=== PATIENT | male | born 1965 | race Caucasian/White ===

== ENCOUNTER → 2020-02-16 | Emergency (ER) | payer OTHER ==
[~2020-02-16] VITALS: Ht 172.7 cm; Wt 111.1 kg
[~2020-02-16] MED LIST: ASPIRIN 81 MG CHEW (CHILDREN'S ASA) PO ONE; HOLD METFORMIN - RECEIVED CONTRAST 20 ML VIAL IV SCH; IOHEXOL 350 MG/ML 100 ML (OMNIPAQUE 350) VIAL IV ONE; NITR0.4T39 SL; NS 100 ML (IVPB) BAG IV ONE
[2020-02-16 17:45] VITALS: BP 128/91
--- NOTE | 2020-02-16 17:50 | ED Chest Pain ---
General Stated Complaint: SOA/SWEATS/NEG COVID TEST TODAY Source: patient Exam Limitations: no limitations History of Present Illness Date Seen by Provider: Feb 16, 2020 Time Seen by Provider: 17:48 Initial Comments To ER by private vehicle from [facility] urgent care with reports of chest pain and shortness of breath. This episode occurred today while he was taking out the trash. He became diaphoretic with it. Pain resolved after about 5 to 10 minutes with rest. He also reports that he has had a few similar episodes over the past 2 to 3 weeks. At the onset of this he dislocated his left knee and states that he cracked his proximal tibia and now has some persistent bruising around the left knee. He is concerned he may have a blood clot. He is symptom- free at this time. Timing/Duration: changing over time, intermittent Severity/Quality: moderate Location: central Radiation: no radiation Activities at Onset: none ASA po REPORT ANALYST: No NTG SL REPORT ANALYST: No Allergies and Home Medications Allergies Coded Allergies: codeine (Unverified Allergy, Mild, 02/11/09) doxycycline (Verified Allergy, Unknown, 02/16/20) Home Medications Nitroglycerin 0.4 Mg Tab.subl, 0.4 MG SL UD PRN for CHEST PAIN Prescribed by: HÉCTOR MIR on 02/16/201957 Patient Home Medication List Home Medication List Reviewed: Yes Review of Systems Review of Systems Constitutional: see HPI, diaphoresis EENTM: No Symptoms Reported Respiratory: See HPI; Denies Cough, Denies Orthopnea, Denies Shortness of Air Cardiovascular: See HPI, Chest Pain Gastrointestinal: No Symptoms Reported Genitourinary: No Symptoms Reported Musculoskeletal: no symptoms reported Skin: no symptoms reported Psychiatric/Neurological: No Symptoms Reported Endocrine: No Symptoms Reported Past Herupxp-Moazla-Enrlek Hx Patient Social History Recent Foreign Travel: No Contact w/Someone Who Travel: No Past Medical History Reproductive Disorders: No Physical Exam Vital Signs Vital Signs - First Documented 02/16/20 17:45 Temp 36.6 Pulse 69 Resp 16 B/P (MAP) 128/91 (103) Pulse Ox 97 O2 Delivery Room Air Capillary Refill : Height, Weight, BMI Height: '" Weight: lbs. oz. kg; BMI Method: General Appearance: No Apparent Distress, WD/WN, Obese Neck: Full Range of Motion, Normal Inspection Respiratory: Lungs Clear, Normal Breath Sounds, No Accessory Muscle Use, No Respiratory Distress Cardiovascular: Regular Rate, Rhythm, Normal Peripheral Pulses Gastrointestinal: Non Tender, Soft Extremity: Normal Capillary Refill, Normal Inspection Neurologic/Psychiatric: Alert, Oriented x3 Skin: Normal Color, Warm/Dry Progress/Results/Core Measures Results/Orders Lab Results Laboratory Tests Test 02/16/20 17:53 Range/Units White Blood Count 6.5 4.3-11.0 10^3/uL Red Blood Count 4.39 4.30-5.52 10^6/uL Hemoglobin 14.7 13.3-17.7 g/dL Hematocrit 42 40-54 % Mean Corpuscular Volume 96 80-99 fL Mean Corpuscular Hemoglobin 34 25-34 pg Mean Corpuscular Hemoglobin Concent 35 32-36 g/dL Red Cell Distribution Width 13.2 10.0-14.5 % Platelet Count 126 L 130-400 10^3/uL Mean Platelet Volume 9.7 9.0-12.2 fL Immature Granulocyte % (Auto) 1 % Neutrophils (%) (Auto) 51 42-75 % Lymphocytes (%) (Auto) 33 12-44 % Monocytes (%) (Auto) 11 0-12 % Eosinophils (%) (Auto) 4 0-10 % Basophils (%) (Auto) 1 0-10 % Neutrophils # (Auto) 3.3 1.8-7.8 10^3/uL Lymphocytes # (Auto) 2.1 1.0-4.0 10^3/uL Monocytes # (Auto) 0.7 0.0-1.0 10^3/uL Eosinophils # (Auto) 0.2 0.0-0.3 10^3/uL Basophils # (Auto) 0.0 0.0-0.1 10^3/uL Immature Granulocyte # (Auto) 0.0 0.0-0.1 10^3/uL Prothrombin Time 13.2 12.2-14.7 SEC INR Comment 1.0 0.8-1.4 Activated Partial Thromboplast Time 26 24-35 SEC Sodium Level 136 135-145 MMOL/L Potassium Level 3.8 3.6-5.0 MMOL/L Chloride Level 103 98-107 MMOL/L Carbon Dioxide Level 20 L 21-32 MMOL/L Anion Gap 13 5-14 MMOL/L Blood Urea Nitrogen 19 H 7-18 MG/DL Creatinine 1.09 0.60-1.30 MG/DL Estimat Glomerular Filtration Rate > 60 BUN/Creatinine Ratio 17 Glucose Level 96 70-105 MG/DL Calcium Level 8.5 8.5-10.1 MG/DL Corrected Calcium 8.3 L 8.5-10.1 MG/DL Magnesium Level 2.4 1.6-2.4 MG/DL Total Bilirubin 0.6 0.1-1.0 MG/DL Aspartate Amino Transf (AST/SGOT) 69 H 5-34 U/L Alanine Aminotransferase (ALT/SGPT) 113 H 0-55 U/L Alkaline Phosphatase 82 40-136 U/L Myoglobin 129.5 H 10.0-92.0 NG/ML Troponin I < 0.028 <0.028 NG/ML B-Type Natriuretic Peptide 14.2 <100.0 PG/ML Total Protein 7.3 6.4-8.2 GM/DL Albumin 4.2 3.2-4.5 GM/DL My Orders Orders - HÉCTOR MIR TELEGRAPH MECHANIC Cbc With Automated Diff (02/16/20 17:46) Magnesium (02/16/20 17:46) Chest 1 View, Ap/Pa Only (02/16/20 17:46) Ekg Tracing (02/16/20 17:46) Comprehensive Metabolic Panel (02/16/20 17:46) Myoglobin Serum (02/16/20 17:46) Protime With Inr (02/16/20 17:46) Partial Thromboplastin Time (02/16/20 17:46) O2 (02/16/20 17:46) Monitor-Rhythm Ecg Trace Only (02/16/20 17:46) Lipid Panel (02/17/20 06:00) Ed Iv/Invasive Line Start (02/16/20 17:46) BNP (02/16/20 17:46) Troponin I (02/16/20 17:46) Aspirin Chewable Tablet (Baby Aspirin Ch (02/16/20 18:00) Ct Angio Chest W (02/16/20 17:46) Iohexol Injection (Omnipaque 350 Mg/Ml 1 (02/16/20 18:00) Received Contrast (Hold Metformin- Contr (02/16/20 18:00) Ns (Ivpb) (Sodium Chloride 0.9% Ivpb Bag (02/16/20 18:00) Medications Given in ED Current Medications Medications Dose Ordered Sig/[place] Route Start Time Stop Time Status Last Admin Dose Admin Aspirin 324 mg ONCE ONCE PO 02/16/20 18:00 02/16/20 18:01 DC 02/16/20 18:02 324 MG Iohexol 100 ml ONCE ONCE IV 02/16/20 18:00 02/16/20 18:01 DC 02/16/20 18:43 84 ML Sodium Chloride 100 ml ONCE ONCE IV 02/16/20 18:00 02/16/20 18:01 DC 02/16/20 18:43 80 ML Vital Signs/I&O 02/16/20 17:45 Temp 36.6 Pulse 69 Resp 16 B/P (MAP) 128/91 (103) Pulse Ox 97 O2 Delivery Room Air Progress Progress Note : Progress Note 1953-I discussed the troponin results being negative with the patient which is reassuring but the CT angio chest shows evidence of coronary artery disease. I spoke with Dr. Call and Dr. Way. Plan would be to admit the patient but he states he will decline and sign out. I discussed that he would need to sign AGAINST MEDICAL ADVICE form. I will give him a prescription for nitroglycerin and he will start taking a daily aspirin. He promises to come back if he gets worse and will call one of the sharepoint net developer in the meantime for follow-up. Departure Communication (Admissions) I spoke with Dr. Finch regarding the negative troponin but concerning symptoms and visible coronary artery disease on CT chest. We will admit, serial troponin, n.p.o. after midnight. Impression Primary Impression: Chest pain Disposition: AGAINST MEDICAL ADVICE Condition: Against Medical Advice Departure-Patient Inst. Decision time for Depature: 19:55 Referrals: ELIF RODRIGUEZ MD FACP [facility] CALL MD NO,LOCAL PHYSICIAN (PCP) Primary Care Physician Patient Instructions: Chest Pain, Adult ED Add. Discharge Instructions: 1. Return promptly to the emergency room if you have any recurrent or worsening symptoms. Please call one of the sharepoint net developer listed in the meantime to make an appointment to be seen preferably this week, as soon as possible. Take the nitroglycerin if you have recurrent chest tightness. Place 1 tablet under the tongue and let it dissolve. You can do this every 5 minutes using a total of up to 3 tablets. If this makes you lightheaded then do not take any additional tablets. You should return to the emergency room if this is needed. Take a baby aspirin daily. Do not take Viagra or any of the erectile dysfunction medications in addition to the nitroglycerin under the tongue. Scripts Nitroglycerin (Nitroglycerin) 0.4 Mg Tab.subl 0.4 MG SL UD PRN for CHEST PAIN, #30 TAB Prov: HÉCTOR MIR APRN 02/16/20 HÉCTOR MIR APRN Feb 16, 2020 17:50
[2020-02-16 18:02] LABS: BASOPHILS % (AUTO) 1 % (0-10)
[2020-02-16 18:03] LABS: EOSINOPHILS # (AUTO) 0.2 10^3/uL (0.0-0.3); EOSINOPHILS % (AUTO) 4 % (0-10); HEMATOCRIT 42 % (40-54); HEMOGLOBIN 14.7 g/dL (13.3-17.7); LYMPHOCYTES # (AUTO) 2.1 10^3/uL (1.0-4.0); LYMPHOCYTES % (AUTO) 33 % (12-44); MEAN CORPUSCULAR HEMOGLOBIN 34 pg (25-34); MEAN CORPUSCULAR HGB CONC 35 g/dL (32-36); MEAN CORPUSCULAR VOLUME 96 fL (80-99); MEAN PLATELET VOLUME 9.7 fL (9.0-12.2); MONOCYTES # (AUTO) 0.7 10^3/uL (0.0-1.0); MONOCYTES % (AUTO) 11 % (0-12); NEUTROPHILS # (AUTO) 3.3 10^3/uL (1.8-7.8); NEUTROPHILS % (AUTO) 51 % (42-75); PLATELET COUNT 126 10^3/uL (130-400); WHITE BLOOD COUNT 6.5 10^3/uL (4.3-11.0)
[2020-02-16 18:14] LABS: PROTHROMBIN TIME PATIENT 13.2 SEC (12.2-14.7)
[2020-02-16 18:21] LABS: ALBUMIN 4.2 GM/DL (3.2-4.5)
[2020-02-16 18:22] LABS: CHLORIDE 103 MMOL/L (98-107); POTASSIUM 3.8 MMOL/L (3.6-5.0); SODIUM 136 MMOL/L (135-145)
[2020-02-16 18:23] LABS: CALCIUM 8.5 MG/DL (8.5-10.1)
[2020-02-16 18:24] LABS: GLUCOSE 96 MG/DL (70-105); TOTAL PROTEIN 7.3 GM/DL (6.4-8.2)
[2020-02-16 18:25] LABS: CARBON DIOXIDE 20 MMOL/L (21-32)
[2020-02-16 18:26] LABS: BILIRUBIN,TOTAL 0.6 MG/DL (0.1-1.0)
[2020-02-16 18:27] LABS: ALKALINE PHOSPHATASE 82 U/L (40-136); CREATININE SERUM 1.09 MG/DL (0.60-1.30); GFR ESTIMATED > 60
[2020-02-16 18:29] LABS: BUN/CREATININE RATIO 17
[2020-02-16 18:30] LABS: ALANINE AMINOTRANSFERASE 113 U/L (0-55); MAGNESIUM 2.4 MG/DL (1.6-2.4)
--- NOTE | 2020-02-16 18:45 | Diagnostic Imaging Report ---
EXAM: AP chest INDICATION: Chest pain COMPARISON made with a prior study from 09/30/2009. FINDINGS: There has been no significant change in size of the cardiac silhouette allowing for AP technique. Pulmonary vascularity appears appropriate without evidence of current failure. There is no focal consolidation within the lungs. There is no effusion. There is no pneumothorax. No acute or suspicious osseous abnormality is evident. IMPRESSION: 1. No radiographic evidence of an acute cardiopulmonary process. Dictated by: Dictated on workstation # [id number]
--- NOTE | 2020-02-16 18:59 | Diagnostic Imaging Report ---
PROCEDURE: CT angiography of the chest with contrast. TECHNIQUE: Multiple contiguous axial images were obtained through the chest after uneventful bolus administration of intravenous contrast. 3D reconstructed CTA MIP acquisitions were also performed. Auto Exposure Controls were utilized during the CT exam to meet ALARA standards for radiation dose reduction. INDICATION: Chest pain and diaphoresis. Comparison is made with a prior chest radiograph from the same day. FINDINGS: The thoracic aorta demonstrates no evidence of dissection, aneurysm or evidence of intramural hematoma. The central pulmonary arteries demonstrate no filling defect to suggest embolism. There is no embolism to the level of the intralobar arteries. There is suboptimal contrast opacification of the smaller segmental and subsegmental branches. There are coronary calcifications evident at the bifurcation of the left main into the LAD and circumflex. There also are some scattered calcifications within the proximal left anterior descending artery. There are some calcifications within the right coronary artery. There is no pericardial collection. Heart size appears appropriate. The lungs demonstrate no focal infiltrate or consolidation. There is no effusion. There is no pneumothorax. There is no suspicious pulmonary nodule or mass. There are no findings of thoracic, hilar or axillary lymphadenopathy. The upper abdomen demonstrates no acute process. There are degenerative endplate changes present throughout the thoracic spine with multiple bridging osteophytes and endplate Schmorl's nodes. There appears to be a chronic compression deformity of L1. No acute or suspicious osseous abnormality demonstrated. IMPRESSION: 1. No CT angiographic evidence of thoracic aortic dissection, intramural hematoma or aneurysm 2. No central pulmonary artery filling defect to suggest embolism. 3. The lungs appear clear 4. No adenopathy 5. Three-vessel coronary artery disease 6. Advanced degenerative features throughout the spine with a chronic appearing compression deformity of L1. Dictated by: Dictated on workstation # [id number]
== END ==
LOC: EDUNIT# 17:27 → ER 17:29
DX: R07.9 Chest pain, unspecified (principal); E66.9 Obesity, unspecified; Z88.5 Allergy status to narcotic agent; Z88.1 Allergy status to other antibiotic agents
CPT/HCPCS: 36415; 71045; 71275; 80053; 83735; 83874; 83880; 84484; 85025; 85610; 85730; 93005; 93041